=== PATIENT | male | born 1970 | race Caucasian/White ===

== ENCOUNTER 2020-07-07 11:00 | Emergency (ER) | payer OTHER ==
[~2020-07-07] VITALS: Ht 180.3 cm; Wt 84.6 kg
[2020-07-07 11:00] VITALS: BP 176/108
[2020-07-07] MEDS ORDERED: HYDROcodone/APAP 5/325MG 1 TAB TABLET PO ONE (12:00)
--- NOTE | 2020-07-07 12:15 | RAD ---
EXAM: Right shoulder, 3 views. HISTORY: Pain and limited range of motion. COMPARISON: None. FINDINGS: 3 views of the right shoulder obtained. There is no fracture, dislocation or subluxation. IMPRESSION: No acute osseous finding. Electronically signed by: Katlyn Ventura MD (07/07/2020 12:12 PM) [id number]
--- NOTE | 2020-07-07 12:20 | PHYS DOC ---
Past History Past Medical History: No Pertinent History Past Surgical History: No Surgical History Smoking: Non-smoker Alcohol Use: None Drug Use: None Adult General Chief Complaint Chief Complaint: SHOULDER INJURY HPI HPI Patient is a49yo male who presents for right shoulder pain. 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 He has taken ibuprofen and used heating pads with mild relief, raising his arm overhead makes worse. 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 Denies any pops or breaks. Has had issues sleeping and rolling over in bed during sleep. Pain is focal to right shoulder, non-radiating and severe in intensity. Review of Systems Review of Systems Fourteen body systems of review of systems have been reviewed. See HPI for pert inent positives and negative responses, other rivero all other systems are negative, non-pertinent or non-contributory Current Medications Current Medications Current Medications Medications (Trade) Dose Ordered Sig/Mikal Start Time Stop Time Status Last Admin Dose Admin Acetaminophen/ Hydrocodone Bitart (Lortab 5/325) 1 tab 1X ONCE 07/07/20 12:00 07/07/20 12:01 DC 07/07/20 12:00 1 TAB Allergies Allergies Allergies Coded Allergies Type Severity Reaction Last Updated Verified amoxicillin Allergy Unknown 07/07/20 Yes aspirin Allergy Unknown 07/07/20 Yes Physical Exam Physical Exam Constitutional: Well developed, well nourished, no acute distress, non-toxic appearance. HENT: Normocephalic, atraumatic, bilateral external ears normal, oropharynx moist, no oral exudates, nose normal. Eyes: PERRLA, EOMI, conjunctiva normal, no discharge. Neck: Normal range of motion, no tenderness, supple, no stridor. Cardiovascular: Heart rate regular, sinus rhythm, no murmurs rubs or gallops Lungs & Thorax: Bilateral breath sounds clear to auscultation Abdomen: Bowel sounds normal, soft, no tenderness, no masses, no pulsatile masses. Nonsurgical abdomen, no peritoneal signs Skin: Warm, dry, no erythema, no rash. Back: No tenderness, no CVA tenderness. Extremities: No tenderness, no cyanosis, no clubbing, no edema. Decreased ROM with external rotation to LUE. Positive neer and empty can test to RUE. Pulses in tact bilaterally, sensory and nerve function intact bilaterally Neurologic: Alert and oriented X 3, grossly normal motor & sensory function, no focal deficits noted. Psychologic: Affect normal, judgement normal, mood normal. Current Patient Data Vital Signs Vital Signs Date Time Temp Pulse Resp B/P (MAP) Pulse Ox O2 Delivery O2 Flow Rate FiO2 07/07/20 12:00 16 98 EKG EKG [] Radiology/Procedures Radiology/Procedures PROCEDURE: SHOULDER 2+V RIGHT EXAM: Right shoulder, 3 views. HISTORY: Pain and limited range of motion. COMPARISON: None. FINDINGS: 3 views of the right shoulder obtained. There is no fracture, dislocation or subluxation. IMPRESSION: No acute osseous finding. Electronically signed by: Katlyn Ventura MD (07/07/2020 12:12 PM) [id number] Heart Score Risk Factors: Risk Factors: DM, Current or recent (<one month) smoker, HTN, HLP, family history of CAD, obesity. Risk Scores: Risk Factors: DM, Current or recent (<one month) smoker, HTN, HLP, family history of CAD, obesity. Course & Med Decision Making Course & Med Decision Making Pertinent Labs and Imaging studies reviewed. (See chart for details) Discussed no bony abnormalities, likely musculoskeletal problem such as rotator cuff injury. Discussed need for outpatient physical therapy with consideration for MRI Short-term narcotic RX prescribed after extensive education on risks vs benefits of such medication. I discussed no emergent/surgical findings and role for continued supportive care and stretches with close PCP follow-up Strict return precautions discussed with good understanding, all questions and concerns addressed prior to ED departure in stable condition Dragon Disclaimer Dragon Disclaimer This electronic medical record was generated, in whole or in part, using a voice recognition dictation system. Departure Departure: Impression: Primary Impression: Right shoulder pain Disposition: 01 DC HOME SELF CARE/HOMELESS Condition: STABLE Referrals: ANDREA PARKER MD (PCP) Patient Instructions: Shoulder Exercises, Generic, SportsMed, Shoulder Pain Additional Instructions: As discussed prior to ER departure, please call your primary care physician first thing Thursday morning to schedule outpatient follow-up Please discuss need for outpatient sports medicine referral and/or need for further diagnostic work-up such as physical therapy with potential need for MRI You might be a candidate for a steroid shot, please discuss this need with your physician If any concerning signs or symptoms present prior to outpatient follow-up, please do not hesitate to come back for repeat assessment and evaluation It was a pleasure to take care of you and I wish you a speedy recovery Scripts Hydrocodone Bit/Acetaminophen (NORCO 5-325 TABLET) 1 Each Tablet 1 TAB PO TID for SEVERE PAIN, #9 TAB Prov: KATE MENDOSA DO 07/07/20 KATE MENDOSA DO Jul 07, 2020 12:20
[2020-07-07] MEDS ORDERED: HYDR-3165 PO (13:16)
== END 2020-07-07 13:31 | disposition home or self-care (01) ==
LOC: ER 11:00
DX: M25.511 Pain in right shoulder (principal); Z88.1 Allergy status to other antibiotic agents; Z88.6 Allergy status to analgesic agent
CPT/HCPCS: 73030; 99283